=== PATIENT | female | born 1955 | race Caucasian/White ===

== ENCOUNTER 2022-09-05 06:59 | Day surgery (SDC) | payer OTHER ==
[~2022-09-05] VITALS: Ht 165.1 cm; Wt 83.9 kg
[2022-09-05] MEDS ORDERED: LIDOCAINE 2%, 20 ML MDV ONE (08:58)
[2022-09-05] MEDS ORDERED: PROPOFOL 200MG/ 20ML VIAL (DIPRIVAN) IV ONE (08:58)
[2022-09-05 13:29] VITALS: BP_SYST 142
== END 2022-09-05 11:05 | disposition home or self-care (01) ==
LOC: SMU 06:59 → SDS 06:59
PROVIDERS: ATTEND Internal Medicine
DX: R19.4 Change in bowel habit (principal); K62.1 Rectal polyp; K57.30 Diverticulosis of large intestine without perforation or abscess without bleeding; K64.8 Other hemorrhoids; K21.9 Gastro-esophageal reflux disease without esophagitis; E78.5 Hyperlipidemia, unspecified; Z87.891 Personal history of nicotine dependence; Z79.82 Long term (current) use of aspirin; Z79.899 Other long term (current) drug therapy
CPT/HCPCS: 71046; 93005; 45385; 88305; J2001; J2704